=== PATIENT | male | born 1960 | race Caucasian/White ===

== ENCOUNTER 2016-06-24 16:44 | Emergency (ER) | payer OTHER ==
--- NOTE | 2016-06-24 17:15 | ER Document Report ---
ED Medical Screen (RME) - General Stated Complaint: BODY NUMBNESS Notes: 56 yo male c/o numbness, feels cold. mouth feels numb, hands feel numb. denies chest pain or shortness of breath. + hx/o HTN, GERD. + increased stress recently, mother and sister are both in the hospital. pt neurologically intact. no focal deficits appreciated TRAVEL OUTSIDE OF THE [place] IN LAST 30 DAYS: No Physical Exam - Vital signs Vitals: Temp Pulse Resp BP Pulse Ox 98.3 F 81 20 145/96 H 100 06/24/16 16:59 06/24/16 16:59 06/24/16 16:59 06/24/16 16:59 06/24/16 16:59 Course - Vital Signs Vital signs: Temp Pulse Resp BP Pulse Ox 98.3 F 81 20 145/96 H 100 06/24/16 16:59 06/24/16 16:59 06/24/16 16:59 06/24/16 16:59 06/24/16 16:59
[2016-06-24 17:52] LABS: ABSOLUTE BASOPHILS # (AUTO) 0.1 10^3/uL (0.0-0.2); ABSOLUTE EOSINOPHILS # (AUTO) 0.2 10^3/uL (0.0-0.6); ABSOLUTE LYMPHOCYTES (AUTO) 2.2 10^3/uL (0.5-4.7); ABSOLUTE MONOCYTES (AUTO) 0.6 10^3/uL (0.1-1.4); ABSOLUTE NEUT (AUTO) 4.2 10^3/uL (1.7-8.2); EOSINOPHILS % (AUTO) 2.4 % (0-6); HEMOGLOBIN 15.1 g/dL (13.5-17.0); HGB HCT DIFFERENCE 2.3; LYMPHOCYTES % (AUTO) 30.3 % (13-45); MEAN CORPUSCULAR HEMOGLOBIN 28.4 pg (27.0-33.4); MEAN CORPUSCULAR HGB CONC 35.1 g/dL (32.0-36.0); MEAN CORPUSCULAR VOLUME 81 fl (80-97); MONOCYTES % (AUTO) 8.4 % (3-13); RED BLOOD COUNT 5.31 10^6/uL (4.35-5.55); RED CELL DISTRIBUTION WIDTH 13.9 % (11.5-14.0); SEGMENTED NEUTROPHILS % (AUTO) 57.9 % (42-78); WHITE BLOOD COUNT 7.2 10^3/uL (4.0-10.5)
[2016-06-24 17:55] LABS: APPEARANCE,URINE CLEAR; BILIRUBIN,URINE NEGATIVE (NEGATIVE); GLUCOSE, URINE NEGATIVE (NEGATIVE); KETONES,URINE NEGATIVE (NEGATIVE); LEUKOCYTE ESTERASE,URINE NEGATIVE (NEGATIVE); NITRITE,URINE NEGATIVE (NEGATIVE); PROTEIN,URINE NEGATIVE (NEGATIVE); URINE SPECIFIC GRAVITY 1.011; UROBILINOGEN,URINE NEGATIVE mg/dL (<2.0)
[2016-06-24 18:12] LABS: ALANINE AMINOTRANSFERASE 54 U/L (21-72); ALBUMIN 4.3 g/dL (3.5-5.0); ALKALINE PHOSPHATASE 62 U/L (38-126); ANION GAP 18 (5-19); ASPARTATE AMINO TRANSFERASE 40 U/L (17-59); BILIRUBIN,TOTAL 0.7 mg/dL (0.2-1.3); BLOOD UREA NITROGEN 11 mg/dL (7-20); CALCIUM 9.6 mg/dL (8.4-10.2); CARBON DIOXIDE 27 mmol/L (22-30); CHLORIDE 94 mmol/L (98-107); CREATININE RESULT 1.09 mg/dL (0.52-1.25); GLUCOSE 94 mg/dL (75-110); SODIUM 138.9 mmol/L (137-145); TOTAL PROTEIN 7.7 g/dL (6.3-8.2)
[2016-06-24 18:27] LABS: POTASSIUM 2.7 mmol/L (3.6-5.0)
[2016-06-24] MEDS ORDERED: POTASSIUM CHLORIDE 10 MEQ TABLET.SA PO ONE (20:09)
[2016-06-24] MEDS ORDERED: MAGNESIUM OXIDE 400 MG TABLET PO ONE (20:09)
[2016-06-24] MEDS ORDERED: DIAZEPAM 5 MG TABLET PO ONE (21:37)
--- NOTE | 2016-06-24 21:39 | ER Document Report ---
ED General - General Chief Complaint: Numbness Stated Complaint: BODY NUMBNESS Notes: Patient is a 56-year-old male with past medical history of hypokalemia and hypertension as well as panic attacks who presents with feelings of diffuse body numbness and tingling. States he's been under a great deal of stress lately and had an episode in which he felt numbness over his abdomen, around his mouth and hands. This started while he was driving his vehicle to do multiple errands which he states were very stressful to him. States he's had similar episodes in the past with panic. His symptoms have resolved at the time of my assessment although he states he still feels very anxious and on edge. Denies any chest pain, shortness of breath, nausea, vomiting, headache or neck pain. He has not seen his primary care doctor regarding today's concerns. Has not noted anything improves or worsens his symptoms. TRAVEL OUTSIDE OF THE [place] IN LAST 30 DAYS: No - Related Data Allergies/Adverse Reactions: No Known Allergies Allergy (Unverified 06/24/16 17:10) Past Medical History - General Information source: Patient - Social History Smoking Status: Never Smoker Chew tobacco use (# tins/day): No Frequency of alcohol use: None Drug Abuse: None Lives with: Spouse/Significant other Family History: Reviewed & Not Pertinent Patient has suicidal ideation: No Patient has homicidal ideation: No - Past Medical History Cardiac Medical History: Reports: Hx Hypertension Renal/ Medical History: Denies: Hx Peritoneal Dialysis GI Medical History: Reports: Hx Gastroesophageal Reflux Disease Past Surgical History: Reports: Hx Tonsillectomy Review of Systems - Review of Systems Notes: Constitutional: Negative for fever. HENT: Negative for sore throat. Eyes: Negative for visual changes. Cardiovascular: Negative for chest pain. Respiratory: Negative for shortness of breath. Gastrointestinal: Negative for abdominal pain, vomiting or diarrhea. Genitourinary: Negative for dysuria. Musculoskeletal: Negative for back pain. Skin: Negative for rash. Neurological: Negative for headaches, weakness or numbness. 10 point ROS negative except as marked above and in HPI. Physical Exam - Vital signs Vitals: Temp Pulse Resp BP Pulse Ox 98.3 F 81 20 145/96 H 100 06/24/16 16:59 06/24/16 16:59 06/24/16 16:59 06/24/16 16:59 06/24/16 16:59 Interpretation: Hypertensive Notes: PHYSICAL EXAMINATION: GENERAL: Well-appearing, well-nourished and in no acute distress. HEAD: Atraumatic, normocephalic. EYES: Pupils equal round and reactive to light, extraocular movements intact, sclera anicteric, conjunctiva are normal. ENT: nares patent, oropharynx clear without exudates. Moist mucous membranes. NECK: Normal range of motion, supple without lymphadenopathy LUNGS: Breath sounds clear to auscultation bilaterally and equal. No wheezes rales or rhonchi. HEART: Regular rate and rhythm without murmurs ABDOMEN: Soft, nontender, normoactive bowel sounds. No guarding, no rebound. No masses appreciated. EXTREMITIES: Normal range of motion, no pitting or edema. No cyanosis. NEUROLOGICAL: No focal neurological deficits. Moves all extremities spontaneously and on command. PSYCH: Normal mood, normal affect. SKIN: Warm, Dry, normal turgor, no rashes or lesions noted. Course - Re-evaluation Re-evalutation: 06/24/16 21:37 Patient presents with history most consistent with an acute panic attack. The patient admits that these are symptoms identical to prior occasions of panic. There was a clear trigger for tonight's episode. Symptoms did resolve after receiving medical therapy here in the emergency department. Vitals otherwise within normal limits. Laboratories obtained in triage demonstrate hypokalemia which patient has a history. I replaced his potassium and magnesium here in the emergency department but instructed him that he will need to follow closely as an outpatient for recheck of this laboratory. I do not suspect an acute pulmonary embolus, ACS, pneumothorax, or any other acute left threatening pathology based on history and exam. At this time will discharge with return precautions and follow-up recommendations. Verbal discharge instructions given a the bedside and opportunity for questions given. Medication warnings reviewed. Patient is in agreement with this plan and has verbalized understanding of return precautions and the need for primary care follow-up in the next 24-72 hours. - Vital Signs Vital signs: Temp Pulse Resp BP Pulse Ox 98.4 F 79 16 128/73 H 99 06/24/16 22:15 06/24/16 22:15 06/24/16 22:15 06/24/16 22:15 06/24/16 22:15 - Laboratory Result Diagrams: 06/24/16 17:20 06/24/16 17:20 Laboratory results interpreted by me: 06/24/16 17:20 Potassium 2.7 L* Chloride 94 L Discharge - Discharge Clinical Impression: Panic attack, Hypokalemia Condition: Good Disposition: HOME, SELF-CARE Additional Instructions: You were seen today for symptoms that are most suggestive of a panic attack. The symptoms can come on without any clear trigger. It is important that you follow-up with your primary care physician regarding anxiety and panic attacks as there are medications that can help prevent these attacks or stop them once they start. Please return to the emergency department immediately if you began having chest pain, shortness of breath, vomiting, difficulty breathing, or if you are again having a panic attack. Please also note that your potassium was very low today. We replaced this here in the emergency department but you will need to follow-up with her primary care doctor in the next several days to her recheck of this lab. Please also return if you have any additional symptoms that are concerning to you.
[2016-06-24 22:40] VITALS: BP 128/73
== END 2016-06-24 22:17 | disposition home or self-care (01) ==
LOC: ER 16:44
DX: F41.0 Panic disorder [episodic paroxysmal anxiety] (principal); E87.6 Hypokalemia; R20.0 Anesthesia of skin; I10 Essential (primary) hypertension; K21.9 Gastro-esophageal reflux disease without esophagitis
CPT/HCPCS: 36415; 80053; 81001; 85025; 99284

== ENCOUNTER → 2017-06-01 | Outpatient (CLI) | payer OTHER ==
[2017-06-01 12:01] LABS: ABSOLUTE BASOPHILS # (AUTO) 0.1 10^3/uL (0.0-0.2); ABSOLUTE EOSINOPHILS # (AUTO) 0.2 10^3/uL (0.0-0.6); ABSOLUTE LYMPHOCYTES (AUTO) 1.4 10^3/uL (0.5-4.7); ABSOLUTE MONOCYTES (AUTO) 0.5 10^3/uL (0.1-1.4); ABSOLUTE NEUT (AUTO) 3.8 10^3/uL (1.7-8.2); EOSINOPHILS % (AUTO) 3.4 % (0-6); HEMATOCRIT 43.2 % (37.9-51.0); HEMOGLOBIN 14.7 g/dL (13.5-17.0); LYMPHOCYTES % (AUTO) 23.6 % (13-45); MEAN CORPUSCULAR HEMOGLOBIN 28.2 pg (27.0-33.4); MEAN CORPUSCULAR HGB CONC 33.9 g/dL (32.0-36.0); MEAN CORPUSCULAR VOLUME 83 fl (80-97); MONOCYTES % (AUTO) 8.7 % (3-13); PLATELET COUNT 249 10^3/uL (150-450); RED CELL DISTRIBUTION WIDTH 14.6 % (11.5-14.0); SEGMENTED NEUTROPHILS % (AUTO) 63.3 % (42-78); TOTAL CELLS COUNTED % (AUTO) 100 %
[2017-06-01 12:26] LABS: ALANINE AMINOTRANSFERASE 49 U/L (21-72); ALBUMIN 4.5 g/dL (3.5-5.0); ALKALINE PHOSPHATASE 54 U/L (38-126); ANION GAP 8 (5-19); ASPARTATE AMINO TRANSFERASE 30 U/L (17-59); BILIRUBIN,DIRECT 0.3 mg/dL (0.0-0.4); BILIRUBIN,TOTAL 0.7 mg/dL (0.2-1.3); BLOOD UREA NITROGEN 12 mg/dL (7-20); CALCIUM 10.3 mg/dL (8.4-10.2); CARBON DIOXIDE 29 mmol/L (22-30); CHLORIDE 103 mmol/L (98-107); GLUCOSE 81 mg/dL (75-110); POTASSIUM 4.7 mmol/L (3.6-5.0); SODIUM 140.1 mmol/L (137-145); TOTAL PROTEIN 7.2 g/dL (6.3-8.2); URIC ACID 8.3 mg/dL (3.5-8.5)
[2017-06-01 12:42] LABS: FREE T3 4.57 pg/mL (2.77-5.27); FREE T4 (FREE THYROXINE) 1.22 ng/dL (0.78-2.19)
[2017-06-01 12:55] LABS: THYROID STIMULATING HORMONE 1.08 uIU/mL (0.47-4.68)
[2017-06-02 07:16] LABS: THYROXINE (T4) 5.7 ug/dL (4.5-12.0)
[2017-06-04 19:48] LABS: TRIGLYCERIDES 173 mg/dL (<150)
[2017-06-04 19:58] LABS: DIRECT LDL 108 mg/dL (<100)
[2017-06-04 20:02] LABS: VLDL CHOLESTEROL 34.6 mg/dL (10-31)
== END ==
LOC: FU 11:42
PROVIDERS: ATTEND Internal Medicine
DX: E83.51 Hypocalcemia (principal); E87.6 Hypokalemia; I10 Essential (primary) hypertension; R73.9 Hyperglycemia, unspecified; M10.9 Gout, unspecified
CPT/HCPCS: 80053; 80061; 84403; 84436; 84439; 84443; 84481; 84550; 85025